=== PATIENT | male | born 1990 | race Caucasian/White ===

== ENCOUNTER 2021-07-20 15:28 | Emergency (ER) | payer SELFPAY ==
[2021-07-20 15:30] VITALS: BP 115/70; PULSE 75; RESP 18; TEMP 36.9; O2SAT 98
--- NOTE | 2021-07-20 15:33 | ED.GENADULT ---
HPI - General Adult General Chief complaint: Skin/Abscess/Foreign Body Stated complaint: Abrasion on leg Time Seen by Provider: 07/20/21 15:33 History of Present Illness HPI narrative: 21-year-old male patient presents to the [facility] with complaints of right leg abrasion. Patient states that about a week ago he was jumping off of a trailer and cut his leg on the metal of a trailer. Patient states that he cleaned it with hydrogen peroxide and wrapped it with a bandage. Patient states he has not been putting anything on it daily. Patient states it is more painful and he notices some redness around the area as well as some swelling near the ankle. Patient states he thinks his last tetanus shot was over 8 years ago. Patient denies any fevers, body aches or chills at this time. Related Data Allergies Allergy/AdvReac Type Severity Reaction Status Date / Time latex Allergy Unknown Unknown Unverified 07/20/21 15:41 Review of Systems Review of Systems: CONSTITUTIONAL: Denies fever, chills, or sweats. EYES: Denies visual changes, redness, or discharge. ENT: Denies rhinorrhea, congestion, sore throat, or otalgia. CARDIOVASCULAR: Denies chest pain, palpitations, or edema. RESPIRATORY: Denies cough or dyspnea. GASTROINTESTINAL: Denies abdominal pain, nausea, vomiting, or diarrhea. GENITOURINARY: Denies dysuria or hematuria. SKIN: Denies rash or itching. Positive wound to right leg MUSCULOSKELETAL: Denies back pain, joint pain, or myalgia. NEUROLOGIC: Denies headache, numbness, or weakness. PSYCHIATRIC: Denies anxiety or depression. PMFSH Social History Social History Smoking status: Light tobacco smoker Alcohol intake: current Comments At the time of my signature I agree with nursing past medical history, surgical, social, and family history. There is no relevant family history pertinent to the presenting complaint. Exam Narrative: GENERAL: Well-appearing, well-nourished, and in no acute distress. HEAD: Normocephalic, atraumatic. EYES: PERRLA and EOMI. ENT: Nares clear, no rhinorrhea or epistaxis. Mucous membranes moist. NECK: Supple. No lymphadenopathy CHEST: Clear to auscultation. No respiratory distress. HEART: Regular rate and rhythm. No murmur heard. Normal peripheral pulses. ABDOMEN: Soft, nontender, nondistended, normal active bowel sounds. EXTREMITIES: Normal range of motion. No edema. SKIN: Warm, dry, no rash. Patient has approximately 6 cm vertical abrasion with black scabbing noted to the anterior right leg. There is some surrounding redness. Directly distal to the wound is another streaky red area with warmth and swelling near the ankle. There is no open wounds to this area at this time. Patient does have tenderness on palpation. NEURO: No focal deficits. Alert and oriented x3. Course Course Level of Care: Express Care Visit Vital Signs Vital signs: Vital signs reviewed [id number] ?98% Medical Decision Making Differential Diagnosis Differential Diagnosis: Differential diagnosis: Abscess, cellulitis, hidradenitis, laceration, puncture wound. Critical Care Time Critical Care Time Critical Care Time: No Discharge Plan Discharge Clinical Impression: Cellulitis Qualifiers: Site of cellulitis of extremity: lower extremity Laterality: right Patient Disposition: Home, Self-Care Condition: Stable Instructions: Antibiotic Form, Cellulitis (ED) Additional Instructions: Take the prescribed antibiotic medicine you are given as directed until it is gone. Take it even if you feel better. It treats the infection and stops it from returning. Not taking all the medicine can make future infections hard to treat. Keep the infected area clean. When possible, raise the infected area above the level of your heart. This helps keep swelling down. May take Tylenol ibuprofen as needed for pain Take your temperature once a day for a week to monitor fo
[2021-07-20] MEDS: TETANUS,DIPHTHERIA,AC PERTUSSIS ADULT (0.5 ML) BOOSTRIX IM (16:06)
== END 2021-07-20 16:17 | disposition home or self-care (01) ==
PROVIDERS: Emergency Provider Nurse Practitioner Family
DX: L03.115 Cellulitis of right lower limb (principal); Z23 Encounter for immunization; F17.200 Nicotine dependence, unspecified, uncomplicated
CPT/HCPCS: 90471; 90715; 99213; G0463